=== PATIENT | female | born 1990 | race Caucasian/White ===

== ENCOUNTER 2021-05-10 12:07 | Emergency (ER) | payer BC ==
[2021-05-10 12:48] LABS: HEMOGLOBIN 12.4 gm/dl (12.3-15.3); RED BLOOD COUNT 4.8 M/UL (4.00-5.10); WHITE BLOOD COUNT 6.3 K/UL (4.5-11.0)
[2021-05-10 13:26] LABS: BUN/CREATININE RATIO 14 (0-10)
== END 2021-05-10 16:50 | disposition home or self-care (01) ==
LOC: ER1 12:07
PROVIDERS: Physician Assistant
DX: R10.9 Unspecified abdominal pain (principal)
CPT/HCPCS: 80053; 81001; 83690; 84703; 85025; 99284; Q9967